=== PATIENT | male | born 1985 | race Caucasian/White ===

== ENCOUNTER 2017-06-01 15:56 | Emergency (ER) | payer OTHER ==
[~2017-06-01] VITALS: Ht 177.8 cm; Wt 63.6 kg
[~2017-06-01 15:56] MED LIST: MEDDOSEPAK OR; NAPROSYN375 MG PO; NAPROSYN500 MG OR; NAPROSYN500 MG PO; NO MEDS; NORCO1 TA1 PO; PENICILLN VK500 MG PO; TORADOL OR; ULTRAM50 M1 PO
[2017-06-01 17:02] LABS: URINE BILIRUBIN - DIPSTICK NEGATIVE (NEGATIVE); URINE BLOOD DIPSTICK NEGATIVE (NEGATIVE); URINE CLARITY CLEAR; URINE COLOR YELLOW; URINE GLUCOSE - DIPSTICK NEGATIVE (NEGATIVE); URINE KETONE TRACE mg/dL (NEGATIVE); URINE LEUK ESTERASE NEGATIVE (NEGATIVE); URINE NITRITE - DIPSTICK NEGATIVE (Negative); URINE PH 5.5 (4.5-8.0); URINE PROTEIN - DIPSTICK 30 mg/dL (NEG-TRACE); URINE SPECIFIC GRAVITY >=1.030
[2017-06-01 17:08] LABS: HEMATOCRIT 54.5 % (39.0-50.0); HEMOGLOBIN 18.3 g/dl (14.0-18.0); IMMATURE GRANULOCYTES 0.5 % (0.0-1.0); MEAN CELL VOLUME 84.1 fL CALC (80.0-100.0); MEAN CORPUSCULAR HGB 28.2 pG CALC (26.0-32.0); MEAN CORPUSCULAR HGB CONC 33.6 g/L CALC (32.0-36.0); NEUT# 6.62 thou/uL (1.82-7.42); RED BLOOD COUNT 6.48 mill/uL (4.70-6.10)
[2017-06-01 17:15] LABS: ALBUMIN 4.5 g/dL (3.2-5.0); ALKALINE PHOSPHATASE 81 u/l (38-126); ANION GAP 18 (6-22 (CALC)); BILIRUBIN, TOTAL 0.8 mg/dL (0.0-1.4); BUN 16 mg/dL (9-20); BUN/CREATININE RATIO 17 (12-20 (CALC)); CALCIUM 9.5 mg/dL (8.4-10.2); CARBON DIOXIDE 28 mmol/l (22-30); CHLORIDE 100 mmol/l (95-108); CREATININE 0.9 mg/dL (0.7-1.3); GFR > 60 ML/MIN (>=60 (CALC)); GFR FOR AFR.AMER. > 60 ML/MIN (>=60 (CALC)); GLUCOSE 88 mg/dL (75-110); LIPASE 33 u/l (23-300); POTASSIUM 4.4 mmol/l (3.5-5.1); SGOT/AST 15 u/l (17-59); SGPT/ALT 30 u/l (21-72); SODIUM 141 mmol/l (137-146); TOTAL PROTEIN 7.2 g/dL (6.3-8.2)
[2017-06-01 17:27] LABS: URINE SPERM MANY hpf (NONE-RARE); URINE SQUAMOUS EPITHELIAL CELL FEW EPI/hpf (0-FEW)
[2017-06-01] MEDS ORDERED: CIPROFLOXACN500 MG PO (18:49)
[2017-06-01] MEDS ORDERED: METRONIDAZOL500 MG PO (18:49)
[2017-06-01] MEDS ORDERED: ZOFRAN4 M1 PO (18:49)
[2017-06-01 19:25] VITALS: BP 120/90
== END 2017-06-01 19:26 | disposition home or self-care (01) | DRG 392 ==
LOC: ED 15:56
PROVIDERS: Family Medicine
DX: K52.9 Noninfective gastroenteritis and colitis, unspecified (principal); K50.90 Crohn's disease, unspecified, without complications; R11.0 Nausea; F17.210 Nicotine dependence, cigarettes, uncomplicated; R10.12 Left upper quadrant pain; Z87.442 Personal history of urinary calculi
CPT/HCPCS: Q9967

== ENCOUNTER 2019-12-17 | Emergency (ER) | payer SELFPAY ==
[~2019-12-17] MED LIST changes: +CIPROFLOXACN500 MG PO; +METRONIDAZOL500 MG PO; +ZOFRAN4 M1 PO
== END 2019-12-17 06:12 | disposition home or self-care (01) | DRG 603 ==
DX: L03.012 Cellulitis of left finger (principal); S61.213A Laceration without foreign body of left middle finger without damage to nail, initial encounter; F17.210 Nicotine dependence, cigarettes, uncomplicated; W60.XXXA Contact with nonvenomous plant thorns and spines and sharp leaves, initial encounter